=== PATIENT | female | born 1985 | race Two or more races ===

== ENCOUNTER 2024-10-10 19:02 | Observation (INO) | payer BC, OTHER ==
[~2024-10-10] VITALS: Ht 165.1 cm; Wt 120.2 kg
--- NOTE | 2024-10-10 20:19 | DVHDS2 ---
Physician Discharge Progress N Final Diagnosis: 1. IUP 26 wk, Abdominal pain 2. Hx of Placenta previa without antepartum hemorrhage Secondary Diagnosis: Round ligament pain Operations or Procedures: Operations or Procedures NST Commentary: Commentary No signs of PTL No vaginal bleeding UA neg Review of systems otherwise negative Condition on Discharge: Stable Disposition: Home Discharge Instructions: Diet: Regular Activity: Light activity Activity comment: Pelvic rest Follow Up/Referral: with Primary OB in 2-3 days Medications: Tylenol PRN pain Follow Up Care: Discharge Statement: "Patient was advised to return to the ER or call 911 if any headaches, dizziness, shortness of breath, chest pain, abdominal pain, bleeding, fevers, or worsening of medical condition. Patient was counseled about treatment plan, medications, possible side effects, patientverbalized understanding. All questions were answered to the best of my ability. This discharge took greater then 30 minutes in planning, reviewing documentation, counseling the patient, and discussing with other team members." Visit Coding OBGYN Date of Service: Oct 10, 2024 Billing Provider: AYLIN WATTERS DO [employer]ULTANT Common Visit Codes: 85874-SWA/OBS SAME DATE (MOD) [employer] CONSULTANT Procedure Codes: 48750-54- NON-STRESS TEST AYLIN WATTERS DO Oct 10, 2024 20:19
== END 2024-10-10 20:50 | disposition home or self-care (01) ==
LOC: LDRP 19:02
PROVIDERS: ADMIT Obstetrics & Gynecology; ATTEND Obstetrics & Gynecology
DX: O26.892 Other specified pregnancy related conditions, second trimester (principal); R10.2 Pelvic and perineal pain; Z98.890 Other specified postprocedural states; Z79.899 Other long term (current) drug therapy; Z3A.26 26 weeks gestation of pregnancy
CPT/HCPCS: 59025; 81002; G0378